=== PATIENT | male | born 1980 | race African-American/Black ===

== ENCOUNTER 2018-03-12 15:21 | Emergency (ER) | payer OTHER ==
[2018-03-12 15:30] VITALS: Ht 188 cm
[2018-03-12 17:16] VITALS: BP 135/80
== END 2018-03-12 17:16 | disposition home or self-care (01) ==
LOC: ED 15:21
DX: S93.402A Sprain of unspecified ligament of left ankle, initial encounter (principal); X50.1XXA Overexertion from prolonged static or awkward postures, initial encounter; Y93.66 Activity, soccer; Y92.89 Other specified places as the place of occurrence of the external cause; Y99.8 Other external cause status